=== PATIENT | male | born 1940 | race Caucasian/White ===

== ENCOUNTER → 2017-10-18 14:26 | Outpatient (CLI) | payer MEDICARE, OTHER, SELFPAY ==
--- NOTE | 2017-10-18 14:43 | EKG12_ITS ---
Test Reason : PRE OP Blood Pressure : / mmHG Vent. Rate : 054 BPM Atrial Rate : 054 BPM P-R Int : 248 ms QRS Dur : 102 ms QT Int : 448 ms P-R-T Axes : 060 -52 070 degrees QTc Int : 424 ms Sinus bradycardia with 1st degree A-V block Left anterior fascicular block Poor R wave progression Abnormal ECG Confirmed by MILTON STRONG, AUTUMN ([id number]), manuscript editor ARMAND MATOS ([id number]) on 10/21/2017 12:02:46 PM Referred By: Karl Workman Confirmed By:AUTUMN ROSE MD
[2017-10-18 15:13] LABS: Hematocrit 41.6 % (40-54); Hemoglobin 13.3 g/dl (13.0-16.5); Mean Corpuscular Hgb 29.7 pg (27.0-32.0); Mean Corpuscular Volume 92.9 fL (80-94); Mean Platelet Vol. 11.6 fl (6.2-12.0); Platelet Count 179 K/mm3 (150-450); RBC Distribution Width CV 14.3 % (11.6-14.6); RBC Distribution Width SD 48.3 fl (35.1-43.9); Red Blood Count 4.48 M/mm3 (4.6-6.2); Scan Indicated on CBC? Y/N NO; White Blood Count 9.2 K/mm3 (4.4-11.0)
[2017-10-18 15:26] LABS: Anion Gap 6 (5-15); BUN 14 mg/dL (7-18); BUN/Creat Ratio 11.3 RATIO (10-20); Calcium,Total 9.4 mg/dL (8.5-10.1); Chloride 110 mmol/L (98-107); Creatinine, Serum 1.24 mg/dL (0.70-1.30); EST Glomerular Filtration Rate 60 mL/min (>60); Est Glom Filt Rate - Afr Amer 72 mL/min (>60); Glucose 133 mg/dL (74-106); Potassium 4.2 mmol/L (3.5-5.1); Sodium Level 144 mmol/L (136-145)
== END ==
PROVIDERS: Visit Provider Urology
DX: Z01.818 Encounter for other preprocedural examination (principal)
CPT/HCPCS: 36415; 80048; 85027; 93005

== ENCOUNTER 2019-04-12 07:30 | Day surgery (SDC) | payer MEDICARE, OTHER, SELFPAY ==
--- NOTE | 2019-04-05 03:06 | HP_ITS ---
Intake Vital Signs 04/05/19 BMI 42.8 04/05/19 Height 5 ft 8 in 04/05/19 Weight: 250 lb 04/05/19 BMI 38.0 04/05/19 BP 148/82 H 04/05/19 Blood Pressure Location Rt brachial 04/05/19 Position Sitting 04/05/19 Respiration 16 04/05/19 Pulse 60 04/05/19 Pulse Source Monitor 04/05/19 Temp 98.5 F 04/05/19 Temp Source Oral 04/05/19 Pulse Oximetry (%) 99 04/05/19 Oxygen Delivery Method room air Intake Visit Reasons: Umbilical Hernia Allocations Clerk Required: No Is patient in pain?: No Allergies No Known Allergies Allergy (Verified 04/05/19 14:55) Medications aspirin 81 mg tablet,delayed release 81 mg PO QDAY 04/15/17 [History Confirmed 04/05/19] clopidogrel 75 mg tablet 75 mg PO QDAY 04/15/17 [History Confirmed 04/05/19] furosemide 40 mg tablet 40 mg PO QDAY 04/15/17 [History Confirmed 04/05/19] nitroglycerin 0.4 mg sublingual tablet 0.4 mg SUBLINGUAL Q5M PRN 04/15/17 [History Confirmed 04/05/19] potassium chloride 20 mEq tablet,extended release 20 meq PO QDAY 04/15/17 [History Confirmed 04/05/19] sildenafil (pulm.hypertension) 20 mg tablet 20 mg PO .COMPLEX #60 tab 07/01/17 [Rx Confirmed 04/05/19] atorvastatin 80 mg tablet 40 mg PO QDAY tab 05/30/18 [History Confirmed 04/05/19] metoprolol tartrate 50 mg tablet 25 mg PO BID tab 05/30/18 [History Confirmed 04/05/19] tamsulosin 0.4 mg capsule 0.4 mg PO QHS cap 05/30/18 [History Confirmed 04/05/19] amlodipine 2.5 mg tablet 2.5 mg PO DAILY 12/01/18 [History Confirmed 04/05/19] glucosamine HCl 1,500 mg tablet 1,500 mg PO DAILY 12/01/18 [History Confirmed 04/05/19] losartan 50 mg tablet 100 mg PO QDAY tab 04/05/19 [History Confirmed 04/05/19] [facility] Medical History (Updated 04/05/19 @ 15:02 by Jay Parada MD) Ventral incisional hernia without obstruction or gangrene (Acute) Sleep apnea (Acute) History of heart attack (Acute) Heart disease (Acute) Gout (Acute) Diabetes (Acute) Umbilical pain (Acute) Presence of stent in coronary artery (Chronic ~10/2010) Pure hypercholesterolemia (Chronic) Atherosclerotic heart disease of [place] coronary artery without angina pectoris (Chronic) Essential hypertension (Chronic) Other fpc (current) drug therapy (Chronic) CAD (coronary artery disease), [place] coronary artery (Inactive) Edema (Inactive) Family history of CVA (Inactive) Hyperlipidemia (Inactive) Surgical History (Updated 04/05/19 @ 14:52 by Jessica Varela) Hx of tonsillectomy (Acute) Hx of bilateral cataract extraction (Acute) Hx of colonoscopy (Acute) Presence of coronary angioplasty implant and graft (Chronic ~10/2010) S/P wrist surgery (Resolved) History of left knee surgery (Resolved) History of cholecystectomy (Resolved) H/O: knee surgery (Inactive) Family History Mother CVA (cerebral vascular accident) Brother Hypertension Son CVA (cerebral vascular accident) Social History (Updated 04/05/19 @ 15:06 by Jay Parada MD) Smoking Status: Never smoker second hand exposure: No alcohol intake: never substance use type: does not use caffeine: Yes Type: coffee Number of servings: 2 what type of physical activity do you participate in: none frequency: does not exercise seatbelt use: always do you feel safe at home: Yes HPI HPI HPI: NAUN NIÑO, is a 79 M who presents to the office today for HPI HPI Surgical H&P: Yes HPI: NAUN NIÑO, is a 79 M who presents to the office today for surgical consultation regarding a symptomatic ventral hernia. Patient's had a previous cholecystectomy. That was performed via a somewhat unusual vertical oblique right carli-rectus incision. Superior to the umbilicus at the tip of the incision him he has developed a bulging mass. Its been there for several years. Recently over [place] he became symptomatic to what was significantly bulging and was tender. He was in the [place] at that time. He had a lie supine and help massage the area back in. He gets most of his care by the [facility] Dr. Kilgore. He gets his cardiology care locally by Dr. Hebert. By report he recently lost his . He moved back from the [facility] to [place]. He has been placed on a better diabetic diet. He does have a history of myocardial infarction and coronary stents. He has stents in his LAD diagonal and RCA in 2010. He currently denies any chest pain. 1 of his more primary medical comorbidities includes obesity with a body weight of 250 pounds and a BMI of 38 Granddaughter is Diann MEDINA General General: Yes weight change HEENT HEENT: Yes eye surgery; no difficulty swallowing, eye injury, swollen glands or hoarseness Endo Endocrine: Yes diabetes mellitus; no thyroid disease, thyroid cancer, Hair loss, heat intolerance or cold intolerance Skin Skin: No rash or changing moles Breast Breast: No left breast lump, right breast lump, nipple discharge, breast pain, abnormal mammogram, abnormal US or breast enlargement Musc Musculoskeletal: Yes gout; no back problems, arthritis, rheumatoid arthritis or joint pain Cardio Cardiovascular: Yes heart disease, high blood pressure, heart attack and heart stent; no murmur, pacemaker, atrial fibrillation, palpitations, shortness of breat with exertion or chest pain Psych Psychiatric: No depression, anxiety or hearing voices Resp Respiratory: No shortness of breath, Yes sleep apnea, No cough, No COPD, No asthma, No emphysema, No wheezing Gastro Gastrointestinal: Yes abdominal pain, No nausea or vomiting, No diarrhea, No constipation, No blood in stool, No acid reflux, No hemorrhoids, No ulcers, No gallbladder problem, No black,tarry stools Miky Hematologic: Yes blood thinners, No blood disorders, No bleeding, No anemia, No blood clots Exam Const General: cooperative, comfortable, no acute distress Nutritional Appearance: obese Orientation: alert, awake, oriented x3 HENMT Head: normal to inspection Eyes General: appearance normal, both eyes and all related structures Chest Chest palpation & inspection: normal inspection of the chest Breast Palpation: No nipple discharge Resp Effort & Inspection: normal respiratory effort Auscultation: clear to auscultation bilaterally Cardio Rate: regular rate Rhythm: regular rhythm Heart Sounds: no murmurs GI Palpation: soft Other: Long oblique vertical right carli-rectus incision with defect palpable supraumbilically with a fixed scar ring approximately 3 cm in diameter and reducible fibrofatty contents. 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 Ventral incisional hernia without obstruction or gangrene K43.2 Plan 79-year-old gentleman. He has what appears to be a symptomatic ventral incisional hernia located supraumbilically. This appears to be related to a previous unusual oblique right carli-rectus incision I propose for him a direct approach. This area seems to have a fairly fixed cicatrix of scar. It is difficult for me to tell whether there could be a multi-defect area. With a long right carli-rectus incision I would want to avoid the right upper quadrant for port placement. If physical decision was required would anticipate getting access through the left upper quadrant of the abdomen. I cautioned that conversion to a laparoscopic approach for intra-abdominal visualization may be required. I have discussed the technique, benefit, risk, alternatives. No guarantees of success have been offered. I would recommend holding his clopidogrel for 5 days preprocedure. We will notify Dr. Hebert of her planned surgery and then schedule appropriately. CC: Dr. Hebert and Dr. Jame Parada, Enrique.Mikayla., F.A.C.S. Coding Level of Care Code Off vis,new,level 4 Diagnoses Ventral incisional hernia without obstruction or gangrene K43.2 04/05/19 1506 <Electronically signed by Jay gonzales MD> Date _ Jay Parada MD I have re-examined the patient. There are no clinical changes since date of exam.
[2019-04-05 15:06] VITALS: BMI 42.8
--- NOTE | 2019-04-12 07:40 | EKG12_ITS ---
Test Reason : PRE-OP Blood Pressure : / mmHG Vent. Rate : 049 BPM Atrial Rate : 049 BPM P-R Int : 268 ms QRS Dur : 106 ms QT Int : 478 ms P-R-T Axes : 054 -43 035 degrees QTc Int : 431 ms Sinus bradycardia with 1st degree A-V block Left axis deviation Abnormal ECG When compared with ECG of 18-OCT-2017 16:00, T wave amplitude has decreased in Inferior leads Confirmed by CAMILLE STRONG, MARC ([id number]), associate editor LATONIA GONZALEZ ([id number]) on 04/14/2019 2:45:03 PM Referred By: Jay Parada Confirmed By:ANGY OBRIEN MD
[2019-04-12 07:58] VITALS: BP 144/56; PULSE 56; RESP 16; TEMP 37.1; O2SAT 96; BMI 37.4
[2019-04-12 08:01] LABS: Hematocrit 39.1 % (40-54); Hemoglobin 12.6 g/dL (13.0-16.5); Mean Corp Hgb Conc 32.2 g/dL (32-36); Mean Corpuscular Hgb 30.4 pg (27.0-32.0); Mean Corpuscular Volume 94.2 fL (80-94); Mean Platelet Vol. 11.5 fl (6.2-12.0); Platelet Count 174 K/mm3 (150-450); RBC Distribution Width CV 13.9 % (11.6-14.6); RBC Distribution Width SD 47.8 fl (35.1-43.9); Red Blood Count 4.15 M/mm3 (4.6-6.2); White Blood Count 8.3 K/mm3 (4.4-11.0)
[2019-04-12] MEDS: Lactated Ringers 1,000 ML 15 ML IV (08:04)
[2019-04-12 08:11] LABS: Bedside Glucose 118 mg/dL (70-110)
[2019-04-12 08:11] LABS: Anion Gap 5 (5-15); BUN 17 mg/dL (7-18); BUN/Creat Ratio 13.2 RATIO (10-20); Calcium,Total 8.9 mg/dL (8.5-10.1); Chloride 111 mmol/L (98-107); Creatinine, Serum 1.29 mg/dL (0.70-1.30); EST Glomerular Filtration Rate 57 mL/min (>60); Est Glom Filt Rate - Afr Amer 69 mL/min (>60); Estimated Creatinine Clearance 44.91 ml/min; Glucose 120 mg/dL (74-106); Sodium Level 142 mmol/L (136-145)
[2019-04-12 08:31] LABS: Hemoglobin A1c 6.3 % (4.2-6.3)
--- NOTE | 2019-04-12 09:45 | HERN_PTH ---
PATIENT: NAUN NIÑO LOC: [facility] U#:[id number] AGE/SX: 79/M ROOM: RE04/12/[address]: Dr. Jay Parada MD : [id number] BED: DIS: 04/12/2019 SPEC #: [id number] RECD: 04/12/19 12:59 STATUS: GREGORIA NYLA #: [id number] HANNY: 04/12/19 09:[address]: Jay Parada DEPT: SURGICAL PATHOLOGY RECD BY: Eliazar Pineda ENTERED: 04/12/19 14:14 SP TYPE: Hernia OTHR DR: [facility] Tissues: HERNIA Procedures: Surgery Specimen Level II HEADER OPERATION: Open incisional hernia repair PRE-OP DIAGNOSIS: Ventral incisional hernia TISSUE SUBMITTED: Hernia sac MICROSCOPIC DIAGNOSIS Soft tissue of ventral abdomen, excision: Hernia sac with mild fibrosis. AM:abbey 04/13/19 MICROSCOPIC DESCRIPTION Slides are reviewed. GROSS DESCRIPTION Received in fixative is one container labeled with the patient's name and designated hernia sac. The specimen consists of a glistening fragment of pink-yellow fibrofatty tissue measuring 5.5 x 4.5 x 1 cm. Serial sections does not reveal mass lesions. Frame Cleaner sections are submitted in one cassette. / AM:rg 04/12/19 TC:5 CPT: 58327
--- NOTE | 2019-04-12 10:05 | DCINST_ITS ---
Discharge Diet: Light diet - advance as tolerated - if you have questions about your diet instructions, please talk to you doctor. Discharge Activity: May Not Drive - for 5-7 days or while taking narcotic pain medicine. May shower in (days): 1 Lifting Restrictions: 10 pounds Call your doctor if your incision/area has: Continuous Slow Oozing, Sudden Increased Bleeding, Increased Pain/ Swelling, Increased Redness, Foul Smelling Discharge Call your doctor if you observe: Fever of 101 or Higher Suture Line Care: Avoid Pulling/Pushing, Avoid Pinching/Bending Additional Dressing/Incision Instructions:: Change or remove dressing in 4 days. Leave steri-strips in place for 1 week. Allergies/Adverse Reactions: Allergies No Known Allergies Allergy (Verified 04/12/19 07:56) Medications to take at Discharge aspirin 81 mg tablet,delayed release 81 mg PO QDAY 04/15/17 clopidogrel 75 mg tablet 75 mg PO QDAY 04/15/17 furosemide 40 mg tablet 40 mg PO QDAY 04/15/17 nitroglycerin 0.4 mg sublingual tablet 0.4 mg SUBLINGUAL Q5M PRN 04/15/17 potassium chloride 20 mEq tablet,extended release 20 meq PO QDAY 04/15/17 sildenafil (pulm.hypertension) 20 mg tablet 20 mg PO .COMPLEX #60 tab 07/01/17 atorvastatin 80 mg tablet 40 mg PO QDAY tab 05/30/18 metoprolol tartrate 50 mg tablet 25 mg PO BID tab 05/30/18 tamsulosin 0.4 mg capsule 0.4 mg PO QHS cap 05/30/18 amlodipine 2.5 mg tablet 2.5 mg PO DAILY 12/01/18 glucosamine HCl 1,500 mg tablet 1,500 mg PO DAILY 12/01/18 losartan 50 mg tablet 100 mg PO QDAY tab 04/05/19 Metformin HCl [Glucophage] 500 mg PO BID 04/11/19 Hydrocodone Bitart/Apap 5-325 [[place] 5MG-325MG] 1 tablet PO Q6H PRN PRN 2 Days #8 tablet 04/12/19 The following prescriptions were given: Hydrocodone Bitart/Apap 5-325 [[place] 5MG-325MG] 1 tablet PO Q6H PRN PRN 2 Days #8 tablet PRN Reason: Pain Transmission Status: Sent to [facility] Orders to be completed after discharge: Basic Metabolic Profile (BMP) Time Frame: 04/12/19, Facility: [facility], Location: Laboratory CBC-Complete Blood Cnt No Diff Time Frame: 04/12/19, Facility: [facility], Location: Laboratory Hemoglobin A1c Time Frame: 04/12/19, Facility: [facility], Location: Laboratory Primary Care Physician: [facility] [Primary Care Provider] - Test Results: Test results from this visit will be discussed in further detail at your follow- up appointment, if applicable. Please Follow Up With: Jay Parada MD - [phone] When: Call to make an appointment to be seen in about 10 days.
[2019-04-12] MEDS: Cefazolin 2 GM in 0.9% Normal Saline 100 ML IV (10:10)
[2019-04-12] MEDS: Bupivacaine 0.25% 30 ML Vial (11:10)
--- NOTE | 2019-04-12 11:16 | OP.PCM_ITS ---
Problem List (1) Ventral incisional hernia without obstruction or gangrene Status: Acute Report of Operation Date of Procedure: 04/12/19 Pre-Operative Diagnosis: Supraumbilical incarcerated ventral incisional hernia Post-Operative Diagnosis: Same Surgery/Procedure Performed:: Ventral incisional herniorrhaphy with ventralex ST hernia patch. Reference #[id number]. Lot number [id number]. Expiry date 10/16/2020 Description of Surgical Findings:: Timeout informed consent was obtained. 79-year-old gentleman stick now who placement table underwent general endotracheal intubation anesthesia. Ancef 2 g given intravenously preoperatively. The abdomen sterilely prepped and draped. [place]an draping was used as well. A transverse incision was made supraumbilically directly over the palpable mass. Sharp and blunt dissection identified a sizable hernia sac and when it was opened there was omentum within it. The omentum was incarcerated within sac and had to be sharply dissected free with sc issor and electrocautery dissection. It was then completely freed and placed back within the abdomen. The hernia sac was resected and submitted the specimen. The fascial defect approximately 5 cm in diameter. A 8 cm ventralex was inserted. The tails were secured with 0 Nurolon. The fascia was closed with simple sutures of 0 Nurolon incorporating a portion of the mesh during the suturing. Good closure was achieved. The fascia and carli-incisional areas anesthetized with 30 cc of 0.5% Marcaine. Subcutaneous tissues were approximated with interrupted 3-0 Vicryl. Skin edges approximated running septic or 4-0 Monocryl. Steri-Strips Telfa and OpSite dressings applied. Sponge and instrument and needle counts reported to surgically correct. Estimated hernia sac. Blood loss minimal. Drains none. An abdominal binder was placed and he was taken to the recovery area in satisfactory addition without apparent complication Jay Parada M.D., F.A.C.S. Type of Anesthesia:: General Anesthesiologist: Mayur Levy
[2019-04-12 11:27] VITALS: BP 137/64; BP 144/56; PULSE 61; RESP 16; TEMP 36.7; O2SAT 95
[2019-04-12 11:45] VITALS: BP 134/64; BP 144/56; PULSE 56; RESP 16; O2SAT 96
[2019-04-12 11:46] LABS: Bedside Glucose 118 mg/dL (70-110)
[2019-04-12 12:05] VITALS: BP 134/65; BP 144/56; PULSE 53; RESP 16; TEMP 36.3; O2SAT 96
[2019-04-12 14:15] VITALS: BP 144/56; BP 160/71; PULSE 56; RESP 14; TEMP 36.3; O2SAT 94
== END 2019-04-12 14:23 | disposition home or self-care (01) ==
LOC: SDC 07:33 → AC 07:36
PROVIDERS: Referring Provider Surgery; Visit Provider Surgery
PROC: 0WQF4ZZ Repair Abdominal Wall, Percutaneous Endoscopic Approach (ICD-10-PCS; CPT 49561; principal; 2019-04-12 09:30)
DX: K43.0 Incisional hernia with obstruction, without gangrene (principal); G47.30 Sleep apnea, unspecified; M10.9 Gout, unspecified; E11.9 Type 2 diabetes mellitus without complications; E78.00 Pure hypercholesterolemia, unspecified; I25.10 Atherosclerotic heart disease of native coronary artery without angina pectoris; I10 Essential (primary) hypertension; I25.2 Old myocardial infarction; E66.9 Obesity, unspecified; Z68.38 Body mass index [BMI] 38.0-38.9, adult; Z95.1 Presence of aortocoronary bypass graft; Z79.02 Long term (current) use of antithrombotics/antiplatelets; Z79.82 Long term (current) use of aspirin; Z79.899 Other long term (current) drug therapy
CPT/HCPCS: 00832; 49561; 49568; 36415; 80048; 82962; 83036; 85027; 88302; 93005; J7120; C1781; J2405

== ENCOUNTER → 2022-10-20 | Outpatient (CLI) | payer MEDICARE, OTHER, SELFPAY ==
--- NOTE | 2022-10-20 16:49 | STRESSREP_ITS ---
Stress Test Report Pharmacologic myocardial perfusion stress test. 82-year-old man with a history of chest pain Resting EKG demonstrates sinus rhythm with a rate of 60 bpm. Incomplete left bundle branch block is present. Resting blood pressure is 130/68 mmHg. 0.4 mg of regadenoson was infused per usual protocol followed by rapid intravenous saline flush injection. Continuous EKG monitoring was performed. The maximum heart rate was 75 bpm which was 55% of max impacted heart rate the maximum workload was 1 metabolic equivalent. At rest there were no ST or T wave changes noted to suggest ischemia and at peak infusion nonspecific ST changes were noted which did not meet the criteria for ischemia. No clinical angina is noted. The final blood pressure was 120/60 mmHg. Myocardial perfusion protocol. 14.8 mCi of technetium 99m sestamibi was injected at rest. 0.4 mg of regadenoson was infused per usual protocol. At peak infusion 44.5 mCi of te chnetium 99m sestamibi was injected stress images were obtained stress and rest images were reconstructed and compared in the short axis vertical long and horizontal long axis. Gated images were also obtained. Perfusion SPECT analysis: Review of the stress images demonstrate normal uptake of tracer noted in all areas of the myocardium. The resting images similar demonstrated normal uptake of tracer noted in all areas of the myocardium. No areas of reversibility are noted to suggest ischemia and no previous infarct is noted. Gated SPECT analysis: The gated ejection fraction is 74%. Conclusion: Normal pharmacologic myocardial perfusion stress test. Preserved ejection fraction.
== END | disposition home or self-care (01) ==
LOC: CVS 06:53
PROVIDERS: Referring Provider Physician Assistant Medical; Visit Provider Physician Assistant Medical
DX: Z95.5 Presence of coronary angioplasty implant and graft (principal)
CPT/HCPCS: 78452; 93017; A9500; A4216; J2785

== ENCOUNTER 2023-07-11 08:11 | Emergency (ER) | payer MEDICARE, SELFPAY ==
[2023-07-11 08:12] VITALS: BP 167/60; PULSE 56; RESP 20; TEMP 36.6; O2SAT 99; BMI 38.3
--- NOTE | 2023-07-11 08:35 | EX.ED.UPPERE ---
HPI History of Present Illness Chief Complaint: Upper Extremity Injury Informant: patient and family Narrative Narrative: Patient has been having pain in his right arm intermittently for the past 3 days. He did not injure anything or fall or lift anything heavy. He states it is a dull ache and it is mostly on the outside of his upper arm and down into his forearm but does not go into his hand or fingers. Denies any numbness or tingling. No weakness in the arm. Denies any other associated symptoms such as chest discomfort, dyspnea, diaphoresis, syncope, or any other systemic symptoms. He denies any neck pain. Does not have a history of neck or back problems that he knows of, but he does note after we talked about the differential that the last time he was measured at the [facility], he seems to have shrunk an inch in height compared to the last visit. Patient indicates that he had shingles in the past, and he had it in the same area that is hurting right now. He admits that he thought it was shingles the first but is surprised that he does not have a rash. [facility] Medical History Atherosclerotic heart disease of [place] coronary artery without angina pectoris CAD (coronary artery disease), [place] coronary artery Diabetes Edema Essential hypertension Family history of CVA Gout Heart disease History of heart attack Hyperlipidemia Other jail (current) drug therapy Presence of stent in coronary artery (~10/2010) Pure hypercholesterolemia Sleep apnea Umbilical pain Ventral incisional hernia without obstruction or gangrene Home Medications aspirin 81 mg tablet,delayed release (Adult Low Dose Aspirin) 81 mg PO QDAY 04/15/17 [History Last Taken 04/06/19] clopidogrel 75 mg tablet (Plavix) 75 mg PO QDAY 04/15/17 [History Last Taken 04/06/19] furosemide 40 mg tablet 40 mg PO QDAY 04/15/17 [History Last Taken Unknown] tamsulosin 0.4 mg capsule 0.4 mg PO QHS 05/30/18 [History Last Taken Unknown] amlodipine 2.5 mg tablet 2.5 mg PO DAILY 12/01/18 [History Last Taken 04/12/19] glucosamine HCl 1,500 mg tablet 1,500 mg PO DAILY 12/01/18 [History Last Taken Unknown] metformin 500 mg tablet 500 mg PO BID 04/11/19 [History Last Taken Unknown] losartan 50 mg tablet 50 mg PO QDAY 10/19/19 [History Last Taken Unknown] metoprolol tartrate 50 mg tablet 50 mg PO BID 02/26/21 [History Last Taken Unknown] triamcinolone acetonide 0.1 % topical ointment 1 applic topical DAILY 07/24/21 [History Last Taken Unknown] nitroglycerin 0.4 mg sublingual tablet (Nitrostat) 0.4 mg sublingual Q5M PRN cp #25 tabs 01/20/22 [Rx Last Taken Unknown] atorvastatin 80 mg tablet 80 mg PO QDAY 10/01/22 [History Last Taken Unknown] benzonatate 100 mg capsule 100 mg PO BID PRN 10/01/22 [History Last Taken Unknown] cetirizine 10 mg tablet 10 mg PO DAILY PRN 10/01/22 [History Last Taken Unknown] empagliflozin 10 mg tablet (Jardiance) 10 mg PO DAILY 10/01/22 [History Last Taken Unknown] gabapentin 300 mg capsule 300 mg PO TID #90 caps 07/11/23 [Rx Last Taken Unknown] hydrocodone-acetaminophen 5-325mg 5mg-325mg 1 tab PO Q6H PRN PRN Pain 3 days #10 TABLETS 07/11/23 [Rx Last Taken Unknown] Allergy/AdvReac Type Severity Reaction Status Date / Time No Known Allergies Allergy Verified 07/11/23 08:14 Family History Mother CVA (cerebral vascular accident) Brother Hypertension Son CVA (cerebral vascular accident) Surgical History H/O: knee surgery History of cholecystectomy History of left knee surgery Hx of bilateral cataract extraction Hx of colonoscopy Hx of hernia repair Hx of tonsillectomy Presence of coronary angioplasty implant and graft (~10/2010) S/P wrist surgery Social History Smoking Status: Never smoker alcohol intake: never substance use type: does not use caffeine: Yes Type: coffee Number of servings: 2 what type of physical activity do you participate in: none seatbelt use: always do you feel safe at home: Yes ROS ROS ED Constitutional Constitutional ED: Denies chills or fever(s) Cardiovascular Cardiovascular: Denies chest pain, palpitations or racing heartbeat Respiratory/Chest Respiratory/Chest: Denies dyspnea Musculoskeletal Musculoskeletal: Reports extremity pain; Denies back pain or neck pain Integumentary Denies Abrasions, rash or wounds Neurologic Neurologic: Denies paresthesias or weakness EXAM Physical Exam Const Vital Signs: 07/11/23 08:12 Temperature 98 F Temperature Source Temporal Pulse Rate 56 L Respiratory Rate 20 H Blood Pressure 167/60 H Blood Pressure Mean 95 Pulse Ox 99 Oxygen Delivery Method Room Air Positive well nourished, well developed and obese General Appearance ED: well developed and NAD Nutritional Appearance: obese Neck full ROM and supple Neck Narrative: When turning the patient's head to the right along with neck extension, the patient's right forearm and upper arm pain is suddenly reproduced, in approximately C5 distribution. Back/Spine normal ROM and normal to inspection Extremity normal to inspection and full ROM Extremity Narrative: Right upper extremity: No reproducible tenderness while patient is resting with mild discomfort. All compartments soft and nondistended with normal inspection no rash. Strong 2+/4 radial pulses bilaterally. Neuro oriented x3, no focal motor deficits and no sensory deficits noted Neuro Narrative: Normal sensory and strength in the right upper extremity. Normal symmetric reflexes. Sensorium / Orientation: alert Psych mental status grossly normal and thought process normal Skin no wounds Rashes: no rashes MDM MDM MDM Narrative Medical decision making narrative: This is most consistent with a C5 radiculopathy. He does not have a rash to suggest zoster. Postherpetic neuralgia is in the differential diagnosis here, as is a cervical disc issue such as rupture, degeneration with pressure on the nerve roots, she has no fever or symptoms of that to suggest acute discitis. At this time I do not think he needs an emergent MRI, but I did do some screening x-rays to look at the foramen of the cervical spine and treated his pain. My interpretation 5 views of the cervical spine do not show anything acute, but I did review the radiologist's interpretation which is consistent with a disc space narrowing around the area of concern, C5-C6. Will start him on gabapentin, given prescription for some [place], and advised to follow-up. No objective weakness at this time. Since he is a diabetic, we are avoiding steroids. History & Record Review Discussion w/independent historian: Patient and Family (2) Discharge Plan Triage Chief Complaint: Upper Extremity Injury ED Provider: Christo Vaca Dx/Rx/DC Orders Clinical Impression: Cervical radiculopathy at C5 Instructions: Cervical Radiculopathy Prescriptions: New hydrocodone-acetaminophen [hydrocodone-acetaminophen] 5-325 mg tablet 1 tab PO Q6H PRN PRN (Reason: Pain) 3 Days Qty: 10 0RF gabapentin 300 mg capsule 300 mg PO TID Qty: 90 0RF No Action clopidogrel [Plavix] 75 mg tablet 75 mg PO QDAY aspirin [Adult Low Dose Aspirin] 81 mg tablet,delayed release (DR/EC) 81 mg PO QDAY furosemide 40 mg tablet 40 mg PO QDAY tamsulosin 0.4 mg capsule 0.4 mg PO QHS losartan 50 mg tablet 50 mg PO QDAY atorvastatin 80 mg tablet 80 mg PO QDAY amlodipine 2.5 mg tablet 2.5 mg PO DAILY glucosamine HCl 1,500 mg tablet 1,500 mg PO DAILY metoprolol tartrate 50 mg tablet 50 mg PO BID triamcinolone acetonide 0.1 % ointment 1 applic topical DAILY nitroglycerin [Nitrostat] 0.4 mg tablet, sublingual 0.4 mg SUBLINGUAL Q5M PRN (Reason: cp) Qty: 25 1RF benzonatate 100 mg capsule 100 mg PO BID PRN cetirizine 10 mg tablet 10 mg PO DAILY PRN Jardiance 10 mg tablet 10 mg PO DAILY metformin 500 MG tablet 500 mg PO BID Primary Care Provider: Jame Munoz Referrals: Hank De La Paz DO [Med Staff - Active Staff] - (ortho spine, if you need local contact/specialist to follow up with) [place], [place] [STAFF PHYSICIAN] - As soon as possible Activity Restrictions/Additional Instructions: For today and tomorrow, do not follow the instructions on the label for the gabapentin. Take it as follows: Today, take no more since she received a dose in the emergency department. Tomorrow, take 1 capsule each time, twice in the day. Then, take the prescription as instructed on the bottle, 1 capsule 3 times daily. Disposition Disposition: Home, Self Care
[2023-07-11] MEDS: Morphine 4 MG/ML Syringe IM (08:47)
[2023-07-11] MEDS: Ondansetron ODT 4 MG Tablet 8 MG PO (08:47)
--- NOTE | 2023-07-11 08:55 | RAD_ITS ---
INDICATION: pain w/ radiculopathy RUE EXAMINATION/TECHNIQUE: X-RAY - XR Spine Cervical 4 or 5 Views COMPARISON: No relevant prior comparison study available FINDINGS: VERTEBRAE: Preserved vertebral body height. No fracture. No spondylolisthesis. Preservation of the normal cervical lordosis. Degenerative changes of the apophyseal joints on the left-sided of C3-C4 and C4-C5. DISCS: Narrowing of C5-C6 disc space. Endplate spondylosis. NECK SOFT TISSUES: No prevertebral soft tissue widening. Atherosclerotic calcifications in the region of the carotid arteries. LUNG APICES: Clear. RAD/Cerv Spine 4 or 5 Views IMPRESSION: Degenerative changes as described above.. Electronically Signed: Daniel Donato MD at 9:41 EDT ,
[2023-07-11] MEDS: Gabapentin 300 MG Capsule PO (10:55)
[2023-07-11 10:58] VITALS: BP 164/62; PULSE 55; RESP 18; TEMP 36.1; O2SAT 98
== END 2023-07-11 11:09 | disposition home or self-care (01) ==
PROVIDERS: Emergency Provider Emergency Medicine; PCP Family Medicine; Visit Provider Emergency Medicine
DX: M54.12 Radiculopathy, cervical region (principal); E11.9 Type 2 diabetes mellitus without complications; I25.10 Atherosclerotic heart disease of native coronary artery without angina pectoris; E78.5 Hyperlipidemia, unspecified; Z95.5 Presence of coronary angioplasty implant and graft; I25.2 Old myocardial infarction; Z79.82 Long term (current) use of aspirin; Z79.899 Other long term (current) drug therapy; Z79.02 Long term (current) use of antithrombotics/antiplatelets; Z79.84 Long term (current) use of oral hypoglycemic drugs; Z90.49 Acquired absence of other specified parts of digestive tract; Z98.41 Cataract extraction status, right eye; Z98.42 Cataract extraction status, left eye
CPT/HCPCS: 72050; 96372; 99282

== ENCOUNTER → 2023-08-04 | Outpatient (CLI) | payer MEDICARE, SELFPAY ==
--- NOTE | 2023-08-04 12:58 | NEURO_ITS ---
NCS and/or EMG Patient Report Ordering Doctor: Jame Munoz DATE OF SERVICE: 08/04/23 Neal presents with a 3-week history of right arm pain and numbness. Electrodiagnostic findings: Right median motor nerve demonstrates normal distal latency and amplitude with reduced conduction velocity. Right ulnar motor resp onse demonstrates normal distal latency and amplitude, with normal conduction across the elbow. Borderline prolonged right median sensory latency. Normal ulnar and radial sensory responses. Needle EMG testing was performed in the right upper limb. All muscles tested showed no evidence of denervation with normal motor unit action potentials. Electrodiagnostic impression: This is an abnormal study in the right upper limb. 1. Electrodiagnostic findings suggestive of right-sided median mononeuropathy. This is consistent with a mild right carpal tunnel syndrome. 2. There is no electrodiagnostic evidence for cervical radiculopathy Multi Select Codes Neurology Neurology Interp Codes: 37960-41 Musc test done w/n test comp (interp) and 63413-39 Nrv cndj test 7-8 studies (interp)
== END | disposition home or self-care (01) ==
PROVIDERS: PCP Family Medicine; Referring Provider Family Medicine; Visit Provider Family Medicine
DX: M54.12 Radiculopathy, cervical region (principal)
CPT/HCPCS: 95886; 95910

== ENCOUNTER → 2023-08-09 | Outpatient (CLI) | payer MEDICARE, SELFPAY ==
--- NOTE | 2023-08-09 10:46 | RAD_ITS ---
STUDY: X-RAY - RIGHT SHOULDER REASON FOR EXAM: Male, 83 years old. PAIN TECHNIQUE: 4 views of the right shoulder. COMPARISON: None. FINDINGS: Normal glenohumeral articulation. There is hypertrophic acromioclavicular arthrosis. Normal acromion. Normal humeral head and visualized proximal humerus. The soft tissue structures are unremarkable. There is no demonstrated fracture. Normal visualized pulmonary apex. RAD/Shoulder min 2 Views IMPRESSION: Hypertrophic acromioclavicular arthrosis. Electronically Signed: Neal Hansen MD at 12:32 EDT ,
--- NOTE | 2023-08-09 10:46 | RAD_ITS ---
STUDY: X-RAY - RIGHT ELBOW REASON FOR EXAM: Male, 83 years old. PAIN TECHNIQUE: 4 views of the right elbow. COMPARISON: None. FINDINGS: Normal visualized humerus, radius and ulna. Normal radiocapitellar and ulnotrochlear articulations. The soft tissue structures are unremarkable. There is no demonstrated fracture. RAD/Elbow min 3 Views IMPRESSION: Normal x-ray examination of the elbow. Electronically Signed: Neal Hansen MD at 12:34 EDT ,
== END | disposition home or self-care (01) ==
LOC: MTRAD 10:45
PROVIDERS: PCP Family Medicine; Referring Provider Family Medicine; Visit Provider Family Medicine
DX: M25.511 Pain in right shoulder (principal); M25.521 Pain in right elbow
CPT/HCPCS: 73030; 73080

== ENCOUNTER 2023-10-06 10:00 | Outpatient (RCR) | payer MEDICARE, SELFPAY ==
--- NOTE | 2023-08-23 11:32 | HP.PTEVAL ---
Patient's Visit Information Visit Information Visit Information: NAUN NIÑO is a 83 year old M referred to Physical Therapy by Dr. Gwyn Jane MD with a diagnosis of PAIN IN RIGHT SHOULDER. Date of Evaluation: 08/23/23 Physical Therapist: Dinesh Abreu PT, Cert MDT, OCS Visit Plan Frequency: 2x /Week Duration: 4 Weeks Plan: PT INTERVENTION'S ROM ,RTC/SCAPULAR ,POSTURAL EX'S ,ACTIVITY MODIFICATION ,MANUAL THERAPY AND MODALITIES Subjective Subjective: This 83 y/o female presents to physical therapy with right shoulder pain. Patient has c/o right right pain for 6 weeks July 10 .Initially went to ER ,then seen family DR. Patient seen DR Jane thinks possible RTC tear or impingement . X-rays showed Hypertrophic acromioclavicular arthrosis. Patient received cortisone injections which helped. Patient located lateral deltoid burning/ache. Patient has pain with activity ADLS and housework tasks . Pain affects ADL and self hygiene. Patient has weakness affects anything above 90 degrees. Tried meloxicam. Patient has numbness in hands. Patient sleeping okay. Patient pain and weakness affects QOL and function. SOCIAL: lives alone Objective Objective: POSTURE : mild forward posture NEURO: c/o paresthesia/tingling in forearm/fingers (DR suspects CTS) PALPATION: unremarkable AROM: shoulder flexion 105 degrees ,abduction ~ 110 degrees ,ER 90 degrees ,IR L1 PROM: shoulder flexion /abd 150 degrees CAPSULAR : mild/mod tight G-H SCAPULAR/HUMERAL FUNCTION: 1:1 ratio MMT: ( peak force) infraspinatus 11.7 ,subscapularis 15.2 ,supraspinatus ,deltoid 11.2 Special Tests R Shoulder External Rotation Lag Test - RC Tear: Negative R Shoulder Lift Off Test - Subscapular Tear: Negative R Shoulder Drop Sign - IS Test: Negative R Shoulder Empty Can - SS: Positive R Shoulder Belly Press - SupScap: Negative R Shoulder Neer - Impingement: Positive R Shoulder Bishop Herbie - Impingement: Positive R Shoulder Biceps Load Test - Labrum: Negative Balance/Special Test Scores Quick DASH Score: 54.5450 Goals Goal 1:: I with HEP for shoulder Goal Time Frame: 4-6 Weeks Goal 2:: Patient to demonstrate 50% improvement with increase function and less pain. Goal Time Frame: 4-6 Weeks Goal 3:: Patient to improve AROM shoulder flexion /abduction by 135 degrees > to improve ADLS Goal Time Frame: 4-6 Weeks Goal 4:: Patient to improve peak force RTC and deltoid by 5-10 # strength to improve activities above 90 Degrees Goal Time Frame: 4-6 Weeks Goal 5:: Patient quick dash by 5 points to improve QOL Goal Time Frame: 4-6 Weeks Rehabilitation Potential Physical Therapy Diagnosis: This patient has impingement right shoulder with pain ,decrease ROM , weakness RTC thus benefit from skilled PT to address these impairments Rehabilitation Potential: Good Anticipated Interventions Patient/Client Instruction: Educate patient on: Condition and Plan of Care For the Purpose of:: To decrease pain, To increase ROM, To improve muscle performance and motor function, To improve ability to perform ADL's, To increase tolerance to activity/condition/position, To improve ability of physical actions for home/community/work/leisure, To improve health of tissue, To decrease soft tissue restriction, To increase flexibility/ROM, To reduce risk of recurrence and To improve tolerance to ADL's Therapeutic Exercise to Include: Strength training, Postural training, Flexibilty training, Passive ROM and Active ROM For the Purpose of:: To decrease pain, To increase ROM, To improve muscle performance and motor function, To improve ability to perform ADL's, To increase tolerance to activity/condition/position, To improve ability of physical actions for home/community/work/leisure, To improve health of tissue, To decrease soft tissue restriction, To increase flexibility/ROM, To prevent re-injury and To improve tolerance to ADL's Manual Therapy Techniques to Include: Mobilization and Passive ROM Comment: G-H For the Purpose of:: To decrease pain, To increase ROM, To improve nutrient delivery to tissue, To increase oxygenation perfusion, To improve health of tissue and To decrease soft tissue restriction TENS: Yes IF ES: Yes Cryotherapy (ice pack, ice massage): Yes Thermo therapy (hot pack): Yes Ultrasound (thermal/non thermal): Yes For the Purpose of:: To decrease pain, To increase ROM, To improve health of tissue and To decrease soft tissue restriction Text: Thank you for the opportunity to evaluate your patient. For Medicare and Medicare HMO plans, please review the plan of care and approve it. It will need to be FAXED BACK to us at [phone] for Medicare purposes. For Medicare only, by signing this I certify the plan of care. Please let me know if there are questions or concerns regarding this plan of care. Physician Signature: Date:
--- NOTE | 2023-10-06 10:27 | HP.PTDCSUM ---
Discharge Summary D/C summary: It has been my pleasure to treat NAUN NIÑO referred by Dr. Gwyn Jane MD, with the diagnosis of PAIN IN RIGHT SHOULDER for a total of 8 visit(s). Discharge Date: 10/06/23 Please see the following information for a summary of their discharge status. Subjective Subjective: Doing well no pain Doing ex's at home Pain R shoulder: Pain Intensity (Out of 10): 0 Objective Objective/Function: POSTURE : mild forward posture NEURO: intact PALPATION: unremarkable AROM: shoulder flexion 140 degrees ,abduction ~ 150 degrees ,ER 90 degrees ,IR L3 PROM: shoulder flexion /abd 160 degrees CAPSULAR : mild/mod tight G-H SCAPULAR/HUMERAL FUNCTION: 1:1 ratio MMT: ( peak force) infraspinatus 16..9 ,subscapularis 15.2 ,supraspinatus 15.3 ,deltoid 15.8 Goals Goal 1:: I with HEP for shoulder Goal Progress: Goal Met Goal 2:: Patient to demonstrate 50% improvement with increase function and less pain. Goal Progress: Goal Met Goal 3:: Patient to improve AROM shoulder flexion /abduction by 135 degrees > to improve ADLS Goal Progress: Goal Met Goal 4:: Patient to improve peak force RTC and deltoid by 5-10 # strength to improve activities above 90 Degrees Goal Progress: Goal Met Goal 5:: Patient quick dash by 5 points to improve QOL Goal Progress: Goal Met Plan Plan: D/C TO HEP D/C Information Discharge Comments: HEP d/c sentence: If there are questions or concerns regarding this patient's physical therapy, please feel free to call me at [phone]. Thank you for the referral of this patient. Sincerely, Dinesh Abreu, PT, Cert MDT, OCS Balance/Gait/Functional tests Balance/Special Test Scores Quick DASH Score: [phone]
--- NOTE | 2023-10-06 10:29 | HP.PTDCSUM ---
Discharge Summary D/C summary: It has been my pleasure to treat NAUN NIÑO referred by Dr. Gwyn Jane MD, with the diagnosis of PAIN IN RIGHT SHOULDER for a total of 8 visit(s). Discharge Date: 10/06/23 Please see the following information for a summary of their discharge status. Subjective Subjective: Doing well no pain Doing ex's at home Pain R shoulder: Pain Intensity (Out of 10): 0 Overall Improvement % Improvement: 100 Objective Objective/Function: POSTURE : mild forward posture NEURO: intact PALPATION: unremarkable AROM: shoulder flexion 140 degrees ,abduction ~ 150 degrees ,ER 90 degrees ,IR L3 PROM: shoulder flexion /abd 160 degrees CAPSULAR : mild/mod tight G-H SCAPULAR/HUMERAL FUNCTION: 1:1 ratio MMT: ( peak force) infraspinatus 16..9 ,subscapularis 15.2 ,supraspinatus 15.3 ,deltoid 15.8 Goals Goal 1:: I with HEP for shoulder Goal Progress: Goal Met Goal 2:: Patient to demonstrate 50% improvement with increase function and less pain. Goal Progress: Goal Met Goal 3:: Patient to improve AROM shoulder flexion /abduction by 135 degrees > to improve ADLS Goal Progress: Goal Met Goal 4:: Patient to improve peak force RTC and deltoid by 5-10 # strength to improve activities above 90 Degrees Goal Progress: Goal Met Goal 5:: Patient quick dash by 5 points to improve QOL Goal Progress: Goal Met Plan Plan: D/C TO HEP D/C Information Discharge Comments: HEP d/c sentence: If there are questions or concerns regarding this patient's physical therapy, please feel free to call me at [phone]. Thank you for the referral of this patient. Sincerely, Dinesh Abreu, PT, Cert MDT, OCS Balance/Gait/Functional tests Balance/Special Test Scores Quick DASH Score: 54.5450 Improvement % Improvement: 100
== END 2023-10-06 19:00 | disposition home or self-care (01) ==
LOC: PT 10:00
PROVIDERS: PCP Family Medicine; Referring Provider Orthopaedic Surgery Sports Medicine; Visit Provider Orthopaedic Surgery Sports Medicine
DX: M25.511 Pain in right shoulder (principal)
CPT/HCPCS: 97110; 97162; 97530

== ENCOUNTER → 2024-02-04 | Outpatient (CLI) | payer MEDICARE, SELFPAY ==
--- NOTE | 2024-02-04 11:15 | RAD_ITS ---
STUDY: X-RAY - LEFT KNEE REASON FOR EXAM: Male, 83 years old. Pain. TECHNIQUE: 4 views of the left knee. COMPARISON: None. FINDINGS: Normal visualized distal femur. Normal visualized proximal tibia and fibula. Normal proximal tibiofibular articulation. There is no demonstrated fracture. There is minimal degenerative arthrosis of the medial femorotibial compartment. There is minimal degenerative arthrosis of the lateral femorotibial compartment. There is minimal degenerative arthrosis of the patellofemoral articulation. There is a tiny knee joint effusion. There are atherosclerotic calcifications. RAD/Knee 4 or More Views IMPRESSION: Minimal tricompartment degenerative arthrosis. Tiny knee joint effusion. No demonstrated fracture. Electronically Signed: Neal Hansen MD at 16:00 EST ,
== END | disposition home or self-care (01) ==
LOC: MTRAD 11:12
PROVIDERS: PCP Family Medicine; Referring Provider Family Medicine; Visit Provider Family Medicine
DX: M25.562 Pain in left knee (principal)
CPT/HCPCS: 73564

== ENCOUNTER → 2024-06-05 | Outpatient (CLI) | payer MEDICARE, SELFPAY ==
--- NOTE | 2024-06-05 16:21 | RAD_ITS ---
PROCEDURE: Pelvis and bilateral hip radiographs, five views 06/05/2024 REASON FOR EXAM: HIP PAIN TECHNIQUE: Five views of the pelvis/bilateral hips were obtained. COMPARISON: None. FINDINGS: Five views of the pelvis/bilateral hips were obtained. The bones are osteopenic. Degenerative changes in the lower lumbar spine. SI joints are intact. A few pelvic phleboliths are present. Mild degenerative changes in the hip joints. No acute fracture or dislocation of either hip. RAD/Hips B/L min 2 views w/ Pelvis IMPRESSION: Osteopenia. No acute bony abnormality of the pelvis/bilateral hips. Mild degenerative changes in the hip joints. Reading Location: [facility]
== END | disposition home or self-care (01) ==
LOC: MTRAD 16:19
PROVIDERS: PCP Family Medicine; Referring Provider Family Medicine; Visit Provider Family Medicine
DX: M25.551 Pain in right hip (principal)
CPT/HCPCS: 73521

== ENCOUNTER 2024-06-29 10:30 | Outpatient (RCR) | payer MEDICARE, SELFPAY ==
--- NOTE | 2024-06-14 18:44 | HP.PTEVAL ---
Patient's Visit Information Visit Information Visit Information: NAUN NIÑO is a 84 year old M referred to Physical Therapy by Dr. Cain Lui DO with a diagnosis of Lumbar facet arthritis. Date of Evaluation: 06/14/24 Physical Therapist: Zia Day DPT Visit Plan Frequency: 2x /Week Duration: 2 Months Plan: Flexion based exercises progressing to core stability in neutral spine. B hip flexor and HS stretching. Subjective Subjective: Pt. is here today for his initial evaluation with diagnosis facet arthritis of lumbar spine. Pt. reports having increased pain for ~6 months. Pt. reports no groin pain, but has pain at posterior T gluteal region. Pt. does not have any radicular symptoms. Pt. reports having a constant ache of 1-2/10 pain, but has intermitent intense symptoms, but randomly. Pt. has started using meloxicam and this has been helpful. He had been using a cane, but is noly using this intermittently now. Pt. reports no pain with sitting or lying down, but has increased pain with standing and walking. Pt. reports no radicular symptoms. He does report that his pain is intense at times resulting in trying to get off his leg due to pain. No N/T noted. Pt. is hopeful to reduce his symptoms in order to get back to all recreational activities without limitations. Pain R posterior gluteal region: Pain Intensity (Out of 10): 1 Pain Intensity Range: 6 Objective Objective: POSTURE: Pt. has a wide MERLINE in stance. Pt. has slight flexed posture. PALPATION: Pt. has tenderness at R upper gluteal region, no marked symptoms with PA pressure throughout lumbar spine. NEURO: Normal sensation and normal DTR of BLEs. Pt. is able to rise on heels and toes. ROM: LUMBAR SPINE: flexion mod loss NE, ext mod loss increase NW, SB min loss increase NW, rotation min loss bilat NE. Pt. has tight HS bilaterally. MMT: Pt. has good BLE strength, no myotomal weakness noted. Core strength: poor. GAIT: Pt. ambulates today without AD. Balance/Special Test Scores Oswestry Low Back Score: 7 Goals Goal 1:: LTG: Pt. to be I with HEP. Goal Time Frame: 4-6 Weeks Goal 2:: STG: pt. to be able to walk community level distances without increase in L hip pain. Goal Time Frame: 2-4 Weeks Goal 3:: LTG: Pt. to resume all recreational walking and shopping without issues. Goal Time Frame: 4-6 Weeks Goal 4:: LTG: Pt. complete all ADls without increase in low back pain. Goal Time Frame: 4-6 Weeks Rehabilitation Potential Physical Therapy Diagnosis: Pt. has signs and symptoms consistent with lumbar facet arthritis. Pt. has marked hypomobility, and core weakness. Pt. would benefit from stretching and core strengthening. Rehabilitation Potential: Good Anticipated Interventions Patient/Client Instruction: Educate patient on: Condition, Plan of Care, Risk Factors and Benefits of Fitness Program For the Purpose of:: To improve decision making, To facilitate caregiver knowledge, To improve self management, To prevent re-injury and To improve ability to perform tasks related to life management Therapeutic Exercise to Include: Strength training, Flexibilty training, Passive ROM, Active ROM, Dynamic Lumbar Stabilization and Zaheer Exercises For the Purpose of:: To decrease pain, To decrease swelling/inflammation, To increase ROM, To improve nutrient delivery to tissue, To increase oxygenation perfusion, To improve muscle performance and motor function and To improve ability to perform ADL's Text: Thank you for the opportunity to evaluate your patient. For Medicare and Medicare HMO plans, please review the plan of care and approve it. It will need to be FAXED BACK to us at [phone] for Medicare purposes. For Medicare only, by signing this I certify the plan of care. Please let me know if there are questions or concerns regarding this plan of care. Physician Signature: Date:
== END 2024-06-29 19:00 | disposition home or self-care (01) ==
LOC: PT 10:30
PROVIDERS: PCP Family Medicine; Referring Provider Orthopaedic Surgery; Visit Provider Orthopaedic Surgery
DX: M47.816 Spondylosis without myelopathy or radiculopathy, lumbar region (principal)
CPT/HCPCS: 97110; 97161